=== PATIENT | male | born 1980 | race American Indian/Alaskan Native ===

== ENCOUNTER 2017-10-18 14:21 | Emergency (ER) | payer MEDICAID ==
--- NOTE | 2017-10-18 13:47 | EDM.PDOC ---
ED HPI GENERAL MEDICAL PROBLEM - General Chief Complaint: Headache Stated Complaint: IN BY AMBULANCE Time Seen by Provider: 10/18/17 14:30 Source of Information: Reports: Patient, EMS, Old Records (from clinic), Provider (Dr. Wang, [facility]), RN, RN Notes Reviewed History Limitations: Reports: No Limitations - History of Present Illness INITIAL COMMENTS - FREE TEXT/NARRATIVE: Arrives by ambulance from [facility] by Dr. Wang with c/o a frontal headache that began yesterday. Pt admits to mild sore throat, dry cough, nausea , and feeling dehydrated. He admits to marijuana use, and he took 2 hydrocodone tablets that he bought "off the street" yesterday without relief of his headache. Denies Hx of headaches or migraines. Onset: Gradual Onset Date: 10/17/17 Duration: Constant Location: Reports: Head Quality: Reports: Ache, Throbbing Severity: Severe Improves with: Reports: None Worsens with: Reports: Other (light exposure/photophobia) Associated Symptoms: Reports: No Other Symptoms Treatments [employer]: Reports: Other Medication(s) Frontal Headache Pain Score (Numeric/FACES): 8 - Related Data Allergies Allergy/AdvReac Type Severity Reaction Status Date / Time No Known Allergies Allergy Verified 10/18/17 14:28 Home Meds: Home Meds Cyclobenzaprine [Flexeril] 10 mg PO TID PRN 10/18/17 [History] Past Medical History - Past Health History Medical/Surgical History: Denies Medical/Surgical History Social & Family History - Family History Family Medical History: Noncontributory - Tobacco Use Smoking Status *Q: Never Smoker Second Hand Smoke Education Provided: No - Caffeine Use Caffeine Use: Reports: Coffee, Soda - Alcohol Use Alcohol Use History: Yes Alcohol Use Frequency: Socially - Recreational Drug Use Recreational Drug Use: Yes Drug Use in Last 12 Months: Yes Recreational Drug Type: Reports: Marijuana/Hashish Recreational Drug Use Frequency: Daily - Living Situation & Occupation Living situation: Reports: with Significant Other ED ROS GENERAL - Review of Systems Review Of Systems: ROS reveals no pertinent complaints other than HPI. - Physical Exam Exam: See Below Exam Limited By: No Limitations General Appearance: Alert, WD/WN, No Apparent Distress Eye Exam: Bilateral Eye: EOMI, Normal Inspection, PERRL Ears: Normal External Exam, Normal Canal, Hearing Grossly Normal, Normal TMs Nose: Normal Inspection, Normal Mucosa, No Blood Throat/Mouth: Normal Lips, Normal Teeth, Normal Gums, Normal Voice, No Airway Compromise, Other (pharyngeal erythema) Head Exam: Atraumatic, Normocephalic Neck: Normal Inspection, Supple, Non-Tender, Full Range of Motion, Lymphadenopathy (L) (shoddy cervical lymphadenopathy), Lymphadenopathy (R), Other (no nuchal rigidity) Respiratory/Chest: No Respiratory Distress, Lungs Clear, Normal Breath Sounds, No Accessory Muscle Use, Chest Non-Tender, Other (mild dry cough) Cardiovascular: Normal Peripheral Pulses, Regular Rate, Rhythm, No Edema, No Gallop, No JVD, No Murmur, No Rub GI/Abdominal: Normal Bowel Sounds, Soft, Non-Tender, No Distention (Male) Exam: Deferred Rectal (Males) Exam: Deferred Neuro Exam (Abbreviated): Alert, Oriented, CN II-XII Intact, Normal Cognition, Normal Gait, No Motor/Sensory Deficits Back Exam: Normal Inspection, Full Range of Motion. No: CVA Tenderness (L), CVA Tenderness (R) Extremities: Normal Inspection, Normal Range of Motion, Non-Tender, No Pedal Edema, Normal Capillary Refill Psychiatric: Normal Affect, Normal Mood Skin Exam: Warm, Dry, Intact, Normal Color, No Rash Course - Vital Signs Last Recorded V/S: Last Vital Signs Temp 37.0 C 10/18/17 14:25 Pulse 65 10/18/17 15:04 Resp 16 10/18/17 15:04 BP 120/96 H 10/18/17 15:04 Pulse Ox 97 10/18/17 15:04 - Orders/Labs/Meds Orders: Active Orders 24 hr Category Date Time Status CULTURE STREP A CONFIRMATION [RM] Stat Lab 10/18/17 14:51 Results STREP SCRN A RAPID W CULT CONF [] Stat Lab 10/18/17 14:51 Results Labs: Laboratory Tests 10/18/17 10/18/17 10/18/17 Range/Units 14:45 14:45 14:51 WBC 7.1 (5.0-10.0) 10^3/uL RBC 5.08 (4.6-6.2) 10^6/uL Hgb 14.5 (14.0-18.0) g/dL Hct 43.0 (40.0-54.0) % MCV 84.6 (80-100) fL MCH 28.5 (27.0-34.0) pg MCHC 33.7 (33.0-35.0) g/dL Plt Count 258 (150-450) 10^3/uL Neut % (Auto) 65.3 (42.2-75.2) % Lymph % (Auto) 26.2 (20.5-50.1) % [place] % (Auto) 7.3 (2-8) % Eos % (Auto) 0.8 L (1.0-3.0) % Baso % (Auto) 0.4 (0.0-1.0) % Sodium (135-145) mmol/L Potassium (3.6-5.0) mmol/L Chloride (101-111) mmol/L Carbon Dioxide (21.0-31.0) mmol/L Anion Gap BUN (7-18) mg/dL Creatinine (0.6-1.3) mg/dL Est Cr Clr Drug Dosing mL/min Estimated GFR (MDRD) BUN/Creatinine Ratio Glucose (74-105) mg/dL Calcium (8.4-10.2) mg/dl Total Bilirubin (0.2-1.0) mg/dL AST (10-42) IU/L ALT (10-60) IU/L Alkaline Phosphatase (42-121) IU/L C-Reactive Protein (0.0-1.3) mg/dL Total Protein (6.7-8.2) g/dl Albumin (3.2-5.5) g/dl Globulin Albumin/Globulin Ratio Urine Color Light yellow (YELLOW) Urine Appearance Clear (CLEAR) Urine pH 7.5 (5.0-9.0) Ur Specific [place] 1.015 (1.005-1.030) Urine Protein Negative (NEGATIVE) Urine Glucose (UA) Negative (NEGATIVE) Urine Ketones Negative (NEGATIVE) Urine Occult Blood Negative (NEGATIVE) Urine Nitrite Negative (NEGATIVE) Urine Bilirubin Negative (NEGATIVE) Urine Urobilinogen 0.2 (0.2-1.0) mg/dL Ur Leukocyte Esterase Negative (NEGATIVE) Urine RBC Not seen /HPF Urine WBC Not seen (0-5/HPF) /HPF Urine Bacteria Not seen (0-FEW/HPF) /HPF Urine Mucus Rare /LPF Urine Opiates Screen Negative (NEGATIVE) Ur Oxycodone Screen Negative (NEGATIVE) Urine Methadone Screen Negative (NEGATIVE) Ur Barbiturates Screen Negative (NEGATIVE) U Tricyclic Antidepress Negative (NEGATIVE) Ur Phencyclidine Scrn Negative (NEGATIVE) Ur Amphetamine Screen Negative (NEGATIVE) U Methamphetamines Scrn Negative (NEGATIVE) Urine MDMA Screen Negative (NEGATIVE) U Benzodiazepines Scrn Negative (NEGATIVE) Urine Cocaine Screen Negative (NEGATIVE) U Marijuana (THC) Screen Positive H (NEGATIVE) 10/18/17 10/18/17 Range/Units 14:51 14:51 WBC (5.0-10.0) 10^3/uL RBC (4.6-6.2) 10^6/uL Hgb (14.0-18.0) g/dL Hct (40.0-54.0) % MCV (80-100) fL MCH (27.0-34.0) pg MCHC (33.0-35.0) g/dL Plt Count (150-450) 10^3/uL Neut % (Auto) (42.2-75.2) % Lymph % (Auto) (20.5-50.1) % [place] % (Auto) (2-8) % Eos % (Auto) (1.0-3.0) % Baso % (Auto) (0.0-1.0) % Sodium 136 (135-145) mmol/L Potassium 3.9 (3.6-5.0) mmol/L Chloride 101 (101-111) mmol/L Carbon Dioxide 27.0 (21.0-31.0) mmol/L Anion Gap 11.9 BUN 13 (7-18) mg/dL Creatinine 0.8 (0.6-1.3) mg/dL Est Cr Clr Drug Dosing 128.88 mL/min Estimated GFR (MDRD) > 60 BUN/Creatinine Ratio 16.25 Glucose 100 (74-105) mg/dL Calcium 9.3 (8.4-10.2) mg/dl Total Bilirubin 1.1 H (0.2-1.0) mg/dL AST 25 (10-42) IU/L ALT 30 (10-60) IU/L Alkaline Phosphatase 60 (42-121) IU/L C-Reactive Protein 0.7 (0.0-1.3) mg/dL Total Protein 8.1 (6.7-8.2) g/dl Albumin 4.5 (3.2-5.5) g/dl Globulin 3.6 Albumin/Globulin Ratio 1.25 Urine Color (YELLOW) Urine Appearance (CLEAR) Urine pH (5.0-9.0) Ur Specific Sumner (1.005-1.030) Urine Protein (NEGATIVE) Urine Glucose (UA) (NEGATIVE) Urine Ketones (NEGATIVE) Urine Occult Blood (NEGATIVE) Urine Nitrite (NEGATIVE) Urine Bilirubin (NEGATIVE) Urine Urobilinogen (0.2-1.0) mg/dL Ur Leukocyte Esterase (NEGATIVE) Urine RBC /HPF Urine WBC (0-5/HPF) /HPF Urine Bacteria (0-FEW/HPF) /HPF Urine Mucus /LPF Urine Opiates Screen (NEGATIVE) Ur Oxycodone Screen (NEGATIVE) Urine Methadone Screen (NEGATIVE) Ur Barbiturates Screen (NEGATIVE) U Tricyclic Antidepress (NEGATIVE) Ur Phencyclidine Scrn (NEGATIVE) Ur Amphetamine Screen (NEGATIVE) U Methamphetamines Scrn (NEGATIVE) Urine MDMA Screen (NEGATIVE) U Benzodiazepines Scrn (NEGATIVE) Urine Cocaine Screen (NEGATIVE) U Marijuana (THC) Screen (NEGATIVE) Rapid Strep: Negative Meds: Medications Discontinued Medications Generic Name Dose Route Start Last Admin Trade Name Freq PRN Reason Stop Dose Admin Hydromorphone HCl 1 mg 10/18/17 14:43 10/18/17 14:55 Dilaudid IVPUSH 10/18/17 14:44 1 mg ONETIME ONE Administration Sodium Chloride 1,000 mls @ 999 mls/hr 10/18/17 14:43 10/18/17 15:09 Normal Saline IV 10/18/17 15:43 999 mls/hr .BOLUS ONE Administration Methylprednisolone Sodium Succinate 125 mg 10/18/17 14:43 10/18/17 14:53 Solu-Medrol IVPUSH 10/18/17 14:44 125 mg ONETIME ONE Administration Ondansetron HCl 4 mg 10/18/17 14:43 10/18/17 14:50 Zofran IV 10/18/17 14:44 4 mg ONETIME ONE Administration Oxycodone/Acetaminophen 1 tab 10/18/17 16:08 Percocet 325-5 Mg PO 10/18/17 16:09 ONETIME ONE Promethazine HCl 50 mg 10/18/17 16:08 Phenergan PO 10/18/17 16:09 ONETIME ONE - Radiology Interpretation Free Text/Narrative:: Head CT: Negative emergency unenhanced CT scan head. See rad report. Departure - Departure Time of Disposition: 16:03 Disposition: Home, Self-Care 01 Condition: Good Clinical Impression: Acute headache Qualifiers: Headache type: unspecified Intractability: not intractable Qualified Code(s): R51 - Headache - Discharge Information Instructions: General Headache Without Cause, [id number] Forms: ED Department Discharge Additional Instructions: Rx: Naprosyn 500mg Rx: Gabapentin 300mg Drink plenty of water, juice, or gatorade. Follow up in clinic next week for recheck. - My Orders Last 24 Hours: My Active Orders 10/18/17 14:51 CULTURE STREP A CONFIRMATION [RM] Stat STREP SCRN A RAPID W CULT CONF [RM] Stat - Assessment/Plan Last 24 Hours: My Active Orders 10/18/17 14:51 CULTURE STREP A CONFIRMATION [RM] Stat STREP SCRN A RAPID W CULT CONF [RM] Stat
[2017-10-18] MEDS ORDERED: methylPREDNISolone Sodium Succinate 125 MG/2 ML SDV IVPUSH ONE (14:43)
[2017-10-18] MEDS ORDERED: HYDROmorphone 1 MG/ML Syringe IVPUSH ONE (14:43)
[2017-10-18] MEDS ORDERED: Sodium Chloride 0.9% 1,000 ML IV ONE (14:43)
[2017-10-18] MEDS ORDERED: Ondansetron 4 MG/2 ML SDV IV ONE (14:43)
[2017-10-18 15:17] LABS: CHLORIDE,CL 101 mmol/L (101-111); SODIUM,NA 136 mmol/L (135-145)
--- NOTE | 2017-10-18 15:48 | CT ---
Clinical history: 36-year-old 200 pound male complaining of severe frontal headache. No known trauma. Scan technique: Volume acquisition of data emergency unenhanced CT scan of the head and brain obtaine d with the patient lying supine on the Siemens multi slice scanner [place], [place]. All data archived in the PACS system for storage and study (bone/brain windows). Interpretation: 1. Uniformly thick bony calvarium without sign of skull fracture, underlying brain contusion or abnor mal extracerebral/intracranial epidural or subdural hematoma. 2. Symmetric hammer-white matter pattern and underlying mirror-image normal ventricular system. Physiol ogic midline pineal and symmetric choroid plexus calcifications. 3. No sign of supratentorial or posterior fossa mass lesion. No hydrocephalus. 4. No focal areas of ischemic infarct and, specifically, no sign of acute intracerebral/intraventricu lar/subarachnoid bleed. 5. Symmetric clear pneumatization of paranasal and mastoid sinuses. CONCLUSION: Negative emergency unenhanced CT scan head.
[2017-10-18] MEDS ORDERED: Acetaminophen/oxyCODONE 325-5 MG Tab PO ONE (16:08)
[2017-10-18] MEDS ORDERED: Promethazine 25 MG Tab PO ONE (16:08)
== END 2017-10-18 16:40 | disposition home or self-care (01) ==
LOC: DL.ED 14:21
DX: R51 Headache (principal)
CPT/HCPCS: 36415; 70450; 80053; 80305; 81001; 85025; 86140; 87081; 87430; 96361; 96374; 96375; 99285; A9270; J1170; J2405; J2930; J7030